=== PATIENT | male | born 1980 | race Caucasian/White ===

== ENCOUNTER 2019-06-17 22:26 | Emergency (ER) | payer OTHER ==
[~2019-06-17] VITALS: Ht 175.3 cm; Wt 72.6 kg
--- NOTE | 2019-06-17 22:55 | NUR ---
Dr. Penaloza at bedside for MSE.
[2019-06-17] MEDS ORDERED: IV D5/ 0.9% NACL 1,000 ML IV ONE (23:00)
[2019-06-17] MEDS ORDERED: LORAZEPAM 2 MG/1 ML VIAL IV ONE (23:00)
[2019-06-17 23:19] LABS: BASOPHILS # (AUTO) 0.1 K/uL (0.0-8.0); BASOPHILS % (AUTO) 0.4 % (0.0-2.0); EOSINOPHILS # (AUTO) 0.2 K/uL (0.0-0.7); EOSINOPHILS % (AUTO) 1.6 % (0.0-7.0); HEMATOCRIT 39.2 % (36.7-47.1); LYMPHOCYTES # (AUTO) 3.5 K/uL (20.0-40.0); LYMPHOCYTES % (AUTO) 22.9 % (20.5-51.5); MEAN CORPUSCULAR HEMOGLOBIN 28.9 uug (23.8-33.4); MEAN CORPUSCULAR HGB CONC 33 g/dL (32.5-36.3); MEAN CORPUSCULAR VOLUME 87.1 fL (73.0-96.2); MONOCYTES # (AUTO) 1.4 K/uL (2.0-10.0); MONOCYTES % (AUTO) 9.4 % (0.0-11.0); NEUTROPHILS # (AUTO) 10.1 K/uL (1.8-8.9); NEUTROPHILS % (AUTO) 65.7 % (38.5-71.5); PLATELET COUNT (AUTO) 269 K/uL (152-348); WHITE BLOOD COUNT (AUTO) 15.3 K/uL (3.6-10.2)
[2019-06-17] MEDS ORDERED: LORAZEPAM 2 MG/1 ML VIAL ONE (23:19)
[2019-06-17 23:38] LABS: ETHANOL < 3 MG/DL (0-0)
[2019-06-17 23:44] LABS: THYROID STIMULATING HORMONE 1.128 mIU/mL (0.358-3.740)
[2019-06-17 23:53] LABS: CARBON DIOXIDE 27 mmol/L (21-32); CHLORIDE 103 mmol/L (98-107); GLUCOSE 133 mg/dL (74-106); POTASSIUM 3.7 mmol/L (3.5-5.1); UREA NITROGEN, BLOOD 20 mg/dL (7-18)
[2019-06-18 00:07] LABS: ALANINE AMINOTRANSFERASE 155 U/L (16-63); ALKALINE PHOSPHATASE 78 U/L (50-136); ASPARTATE AMINOTRANSFERASE 65 U/L (15-37); BILIRUBIN,DIRECT 0.1 mg/dL (0.0-0.2); BILIRUBIN,TOTAL 0.6 mg/dL (0.2-1.0); TOTAL PROTEIN, SERUM 7.4 g/dL (6.4-8.2)
--- NOTE | 2019-06-18 00:36 | NUR ---
Pt refused to give urine.
[2019-06-18 00:44] LABS: ACETAMINOPHEN < 2.0 ug/mL (10-30)
--- NOTE | 2019-06-18 06:23 | NUR ---
Patient given written and verbal discharge instructions. Patient verbalizes understanding of instructions. Patient is ambulatory with steady gait. Refuses offer of chcf placement. Patient given list of available shelters in surrounding area. Instructed to wait in waiting room @0830 if he wishes chcf placement. Pt provided food per request, VSS, no acute signs of distress, all belongings taken, alert, oriented x 3 , IV site discontinued.
[2019-06-18 06:26] VITALS: BP 105/70
--- NOTE | 2019-06-18 14:10 | NUR ---
10:10am: ANURAG informed by ED triage nurse Marli that patient was waiting in the ED waiting room because he wanted to speak with a SW. RN Marli stated that patient was seen and discharge overnight. SW met with patient in the ED waiting room. Patient is a 39 year old male, awake, alert, oriented, and receptive to meeting with this SW. Patient wanted to ask about information on shelters. Per ED nurse's notes, patient was provided the homeless resource packet, but had declined chcf placement. SW reminded patient that he was provided a homeless resource packet which included the list of homeless shelters throughout [facility]. Patient pulled the packet out of his backpack, and SW reviewed the packet with the patient, pointing out the pick-up locations and times for the [facility] in [place], along with some of the other shelters. Patient expressed understanding and stated "so they will come pick me up from these addresses?" SW confirmed patient's understanding. Patient then asked about information on substance abuse treatment programs. SW reviewed the list of substance abuse treatment program resources that are in the homeless resource packet: [facility] ; [facility] ; [facility] ; [facility] ; [facility] ; [facility] [phone]; [facility] [phone]. SW then asked patient if there was any other resource or information he needed, and patient stated that there was not. Patient thanked SW for the information provided. Patient had already signed the Homeless Patient Waiver Form at time of discharge. No further SS interventions needed at this time.
== END 2019-06-18 06:27 | disposition home or self-care (01) ==
LOC: ER 22:31
DX: F43.20 Adjustment disorder, unspecified (principal); F15.10 Other stimulant abuse, uncomplicated; F12.10 Cannabis abuse, uncomplicated; Z59.0 Homelessness
CPT/HCPCS: 36415; 80048; 80076; 84443; 85025; 96374; 99283; G0480 ×2; G0481; J2060; J7042; A4663

== ENCOUNTER 2020-11-15 21:13 | Emergency (ER) | payer MEDICAID ==
[~2020-11-15] VITALS: Ht 172.7 cm; Wt 74.8 kg
--- NOTE | 2020-11-15 22:35 | NUR ---
Dr. Botello at bedside, MSE in progress.
--- NOTE | 2020-11-15 23:13 | NUR ---
Patient refused blood work orders, Dr. Botello is made aware, patient currently noted to be asleep.
--- NOTE | 2020-11-16 02:59 | NUR ---
pt currently asleep, no distress noted
--- NOTE | 2020-11-16 07:05 | NUR ---
Gave report to Alejandra.
--- NOTE | 2020-11-16 07:07 | NUR ---
Recieved pt in bed, resting comfortably w/ both eyes closed. Breakfast placed at the bedside.
--- NOTE | 2020-11-16 09:08 | NUR ---
Pt is awake A/O x4, states feeling better, eating breakfast.
--- NOTE | 2020-11-16 09:36 | NUR ---
Patient eloped from facility. ER physician notified.
== END 2020-11-16 09:37 | disposition left against medical advice (07) ==
LOC: ER 21:18
DX: R53.1 Weakness (principal); T42.75XA Adverse effect of unspecified antiepileptic and sedative-hypnotic drugs, initial encounter; Y92.89 Other specified places as the place of occurrence of the external cause; Z59.0 Homelessness; F32.9 Major depressive disorder, single episode, unspecified
CPT/HCPCS: A4663

== ENCOUNTER 2022-05-23 07:12 | Emergency (ER) | payer MEDICAID, OTHER ==
[~2022-05-23] VITALS: Ht 175.3 cm; Wt 68.0 kg
[2022-05-23] MEDS ORDERED: LIDOCAINE VISCUS 2% 15 ML UDC MM ONE (07:30)
[2022-05-23] MEDS ORDERED: IV NORMAL SALINE 1000 ML BAG IV ONE (07:30)
[2022-05-23] MEDS ORDERED: FAMOTIDINE. 20 MG/2 ML VIAL IV ONE ×2 (07:30→07:52)
[2022-05-23] MEDS ORDERED: ONDANSETRON 4 MG/2 ML VIAL IV ONE (07:30)
[2022-05-23] MEDS ORDERED: MAG HYDROX/AL HYDROX/SIMETH 30 ML LIQUID UDC PO ONE (07:30)
[2022-05-23] MEDS ORDERED: LIDOCAINE VISCUS 2% 15 ML UDC ONE (07:52)
[2022-05-23] MEDS ORDERED: ONDANSETRON 4 MG/2 ML VIAL ONE (07:52)
[2022-05-23] MEDS ORDERED: MAG HYDROX/AL HYDROX/SIMETH 30 ML LIQUID UDC ONE (07:52)
[2022-05-23 08:10] LABS: HEMATOCRIT 35.1 % (36.7-47.1); MEAN CORPUSCULAR HEMOGLOBIN 24.4 uug (23.8-33.4); MEAN CORPUSCULAR VOLUME 76.1 fL (73.0-96.2); PLATELET COUNT (AUTO) 272 K/uL (152-348)
[2022-05-23 08:34] LABS: POTASSIUM 4.5 mmol/L (3.5-5.1)
[2022-05-23 08:40] LABS: BILIRUBIN,DIRECT 0.1 mg/dL (0.0-0.2); BILIRUBIN,TOTAL 0.4 mg/dL (0.2-1.0); TOTAL PROTEIN, SERUM 7.6 g/dL (6.4-8.2)
--- NOTE | 2022-05-23 08:40 | NUR ---
Social Work consult was requested for a patient in the emergency room for mental health, homeless and substance abuse resources. Patient is a 42-year-old male. Patient presents with anxious mood and congruent affect. Patient states he does not have a primary contact. Patient states he is homeless, and ANURAG provided the patient with homeless resources for [facility] [address] [place] [address] ([phone]) and [facility] [address] [facility] [address] ([phone]). ANURAG gave resources for [facility] [address] [facility] [address]. Patient was appreciative of the resources. Patient signed the homeless waiver form, and a copy was placed in the chart. Patient states he has a history of meth abuse and states he last used meth yesterday. There is no toxicology report. ANURAG provided the patient with substance abuse resources for [facility] [address] [facility] [address] ([phone]), [facility] [address] [facility] [address] ([phone]), and [address] [address] ([phone]). Patient appears unmotivated for treatment. Patient states he has a history of depression and states that he does not have a therapist or psychiatrist. Patient states he has suicidal ideation and states he wants to run into traffic. Patient denies homicidal ideation. Patient denies auditory or visual hallucinations. ANURAG provided the patient with mental health resources for [facility] [address] [place] [address] ([phone]). Patient states he is open to going to [facility]. ANURAG faxed the patients face sheet to [facility] ([phone]), spoke with Georgi ([phone]) and faxed the clinical information to [facility] Intake (fax: [phone]). ANURAG informed nurse, Amy, and Doctor Tremaine.
[2022-05-23 08:46] LABS: ETHANOL < 3 MG/DL (0-0)
--- NOTE | 2022-05-23 09:29 | NUR ---
Received report from Gabrielle SOTO that pt arrived with c/o abdominal pain, rated 8/10, characterized as aching. Pt also stated that he had a bowel movement yesterday x1, last food intake was yesterday as well. Pt has hx of HIV. Stated he wants to be admitted to [facility]. Seen by [facility] for MSE.
[2022-05-23 09:31] LABS: *BILIRUBIN,URIN NEGATIVE (NEGATIVE); *BLOOD, URINE NEGATIVE (NEGATIVE); *CLARITY,URINE CLEAR (CLEAR); *COLOR,URINE YELLOW (YELLOW); *KETONES,URINE NEGATIVE (NEGATIVE); *UROBILINOGEN,URINE 0.2 E.U./dl (NORMAL); LEUKOCYTE ESTERASE ,URINE NEGATIVE (NEGATIVE); NITRITE, URINE NEGATIVE (NEGATIVE); PH,URINE 6.5 (5.0-8.0); UGLUCOSE NEGATIVE (NEGATIVE)
[2022-05-23 09:31] LABS: ACETAMINOPHEN 14.4 ug/mL (10-30)
[2022-05-23 09:41] LABS: *AMPHETAMINE, URINE POSITIVE (NEGATIVE); *CANNABINOID, URINE NEGATIVE (NEGATIVE); *COCCAINE, URINE NEGATIVE (NEGATIVE); *OPIATE, URINE NEGATIVE (NEGATIVE); *PHENCYCLIDINE SCREEN,URINE NEGATIVE (NEGATIVE)
--- NOTE | 2022-05-23 10:56 | NUR ---
Pt is medically cleared by Dr. Penaloza. Toña sent the pt's clinicals to [facility]. Called to verify about pt's status, talked to Lico from admission and according to him they haven't reviewed his profile yet. Will be expecting a call back from them once they're done with the review. Call back # [phone].
--- NOTE | 2022-05-23 11:50 | NUR ---
[facility]. Pt will be under the care of Dr. Francis, instructed to send patient after 2pm d/t bed unavailability til 2pm. Informed Toña MULLER Arranged transport to [facility] with [facility], will be picking-up pt at 1430. [facility] direct # . made aware.
--- NOTE | 2022-05-23 12:08 | NUR ---
NurseAmy, gave report to [facility] and SW called [employer] ([phone]) for transportation. Patient will be transported to [facility] at 2:30pm. SW informed nurseAmy and Dr. Penaloza.
[2022-05-23 16:12] VITALS: BP 149/67
--- NOTE | 2022-05-23 16:12 | NUR ---
Pt is stable, compliant, AOx4, denies pain, headache, n/v. No signs of acute distress or agitation. V/S are WNL. [facility] arrived to pick-up pt going to [facility]. Pt's belongings are brought with him. Pt have no family members to be informed about pt's situation.
== END 2022-05-23 16:13 ==
LOC: ER 07:17
DX: R45.851 Suicidal ideations (principal); K80.20 Calculus of gallbladder without cholecystitis without obstruction; R11.2 Nausea with vomiting, unspecified; R07.9 Chest pain, unspecified; F15.10 Other stimulant abuse, uncomplicated; K59.00 Constipation, unspecified; R19.7 Diarrhea, unspecified; Z91.14 Patient's other noncompliance with medication regimen; Z20.822 Contact with and (suspected) exposure to COVID-19; Z59.00 Homelessness unspecified
CPT/HCPCS: 80076; 80048; 81003; 83690; 85025; 87426; 84484 ×2; 36415; 93005; 71045; 74176; 76705; 99285; 96361; 96374; 96375; 80299; 80320; 80307; J3490; J2405; J7040; A4663; G0480